=== PATIENT | female | born 1990 | race Caucasian/White ===

== ENCOUNTER 2016-10-27 00:32 | Inpatient (IN) | payer OTHER ==
[~2016-10-27] VITALS: Ht 175.3 cm; Wt 129.3 kg
[~2016-10-27 00:32] MED LIST: Acetaminophen/Codeine PO; Ibuprofen PO; ONDA4TAB9 PO; PNV1TABL9 PO
[2016-10-27 08:20] LABS: Mean Corpuscular Hemoglobin 28.3 pg (27.0-35.0); Mean Corpuscular Volume 85.5 fL (81-100)
[2016-10-27] MEDS ORDERED: Lactated Ringer's 1,000 ML IV PRN (08:41)
[2016-10-27] MEDS ORDERED: Methylergonovine 0.2 mg/mL Inj IM PRN ×2 (08:45→13:55)
[2016-10-27] MEDS ORDERED: Oxytocin 30 Units/500 mL LR 30 UNITS in IV Premix 1 EACH IV PRN ×2 (08:45→13:55)
[2016-10-27] MEDS ORDERED: Ondansetron 2 mg/mL 2 mL Inj IVPUSH PRN (08:45)
[2016-10-27] MEDS ORDERED: Hemorrhage Kit, Post Partum XX ONE ×2 (08:45→13:55)
[2016-10-27] MEDS ORDERED: Sodium Chloride LOK Flush 10 mL Syringe IVFLUSH PRN (08:45)
[2016-10-27] MEDS ORDERED: Carboprost 250 mCg/mL Inj IM PRN ×2 (08:45→13:55)
[2016-10-27] MEDS ORDERED: Oxytocin 10 Unit/mL Inj IM PRN ×2 (08:45→13:55)
[2016-10-27] MEDS ORDERED: fentaNYL-PF 50 mCg/mL 2 mL Inj IVPUSH PRN (12:00)
[2016-10-27] MEDS: Lactated Ringer's 1,000 ML IV SCH ×2 (13:52→21:52)
[2016-10-27] MEDS ORDERED: Measles-Mumps-Rubella Vaccine 0.5 mL Inj SUBQ ONE (13:55)
[2016-10-27] MEDS ORDERED: TdaP Vaccine 0.5 mL Inj IM ONE (13:55)
[2016-10-27] MEDS ORDERED: Benzocaine (Dermoplast) 20% 60 Gm Spray TOPICAL PRN (13:55)
[2016-10-27] MEDS ORDERED: Witch Hazel-Glycerin Pads TOPICAL PRN (13:55)
[2016-10-27] MEDS ORDERED: Influenza (Adult) Vaccine 0.5 mL Syringe IM ONE (13:55)
[2016-10-27] MEDS ORDERED: LANOlin HPA 7 Gm Ointment TOPICAL PRN (13:55)
[2016-10-27] MEDS: HYDROcodone-APAP 5-325 mg Tablet PO PRN ×2 (15:42→21:23)
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
--- NOTE | 2016-10-28 02:15 | OP ---
[address] [address] OPERATIVE REPORT PATIENT: HECTOR LARES : 1990 MR#: [id number] ADMIT: 10/27/2016 JOB ID: [id number] DATE OF SURGERY: 10/27/2016, about 15:00. [facility] NOTE: The patient was admitted this morning on October 27, 2016, for labor induction at her request. Artificial rupture of membranes was accomplished and clear fluid recovered, and uterine contractions initially became stronger. However, Pitocin therapy also was needed to bring contractions closer and more uniformly intense, and later intrauterine pressure catheter was placed which definitely helped management. Ultimately, labor progressed relatively rapidly in the active phase and second stage. heart tracing was acceptable. In the very short second stage of labor patient pushed and head delivered, followed directly by the body and extremities. Baby was vigorous and active and crying, and handed to the mother. Placenta was then expelled, intact. Note that the membranes took almost 30 minutes to pass, yet appeared to be intact, and although difficult, palpation into at least a portion of the uterine cavity did not demonstrate any obvious retained membrane fragment. Blood loss was in the 150 cc range. Betadine solution was used to cleanse the vulvovaginal region. No lacerations were noted. There was periurethral abrasion noted in the anterior to her right region, not bleeding, no stitches needed. Procedure was then complete, with instrument, needle and sponge counts all found to be correct. Note that cord blood had been obtained for routine studies. It certainly is anticipated that mother and baby will do very well during the and timeframe. [facility]
[2016-10-28] MEDS: HYDROcodone-APAP 5-325 mg Tablet PO PRN ×3 (02:44→14:41)
[2016-10-28] MEDS: Lactated Ringer's 1,000 ML IV SCH (05:52)
[2016-10-28 06:25] LABS: Mean Corpuscular Hemoglobin 28.5 pg (27.0-35.0); Mean Corpuscular Volume 86.1 fL (81-100)
--- NOTE | 2016-10-28 12:46 | PCM.DIOB ---
Obstetrical Disch Instruction Dates of Hospitalization Date of Hospital Admission Oct 27, 2016 at 07:00 Providers Admitting Physician: Ernesto Gupta MD Primary Care Physician: Ernesto Gupta MD Attending Physician: Ernesto Gupta MD Discharge Diagnosis Problems: (1) Status: Acute ICD Code: Z33.1 Diet Discharge Diet: No restrictions Activity Discharge Activity-General: Pelvic Rest for 6 weeks Dressing and Incisional Care Hygiene: May shower, Perineal care, Sitz bath, Dermoplast spray, Witch Mariaa pads, Ice Follow Up Plan Follow-up appointment: Weeks (Follow up in 6 weeks for checkup with Dr. Gupta...Call to make appointment.) Call your provider for: Fever or Chills, Shortness of breath, Heavy vaginal bleeding, Red painful breasts Ernesto Gupta MD Oct 28, 2016 12:46
[2016-10-28] MEDS ORDERED: IBUP-1827 PO (12:47)
[2016-10-28] MEDS ORDERED: HYDR-4003 PO (12:47)
[2016-10-28 13:11] VITALS: BP 112/67; PULSE 87; RESP 18
--- NOTE | 2016-10-28 21:26 | DIS ---
[address] [address] DISCHARGE SUMMARY PATIENT: HECTOR LARES : 1990 MR#: [id number] ADMIT: 10/27/2016 JOB ID: [id number] DIS: 10/28/2016 DISCHARGE DIAGNOSIS: Term , delivered. PROCEDURES PERFORMED DURING HOSPITALIZATION: 1. Labor induction. 2. Vaginal delivery. HOSPITAL COURSE: The patient was admitted to [facility] on October 27, 2016, on which day she underwent labor induction ultimately leading to vaginal delivery. During the timeframe, the patient did well with stable vitals, afebrile, with reasonable bleeding and pain management, ambulating and voiding, without leg pain or shortness of breath and handling the baby well. hemoglobin was okay. The patient requested discharge to home on the first day (i.e. on October 28, 2016). DISCHARGE PROGRAM: The patient will call p.r.n. Otherwise, she will follow up at six weeks for checkup with Dr. Gupta. She will observe pelvic rest for six weeks. DISCHARGE MEDICATIONS: Include Ibuprofen 600 mg and [place] 5/325; prescriptions written. She also will use a vitamin daily while nursing; she has supply at home.
== END 2016-10-28 15:30 | disposition home or self-care (01) | DRG 775 ==
LOC: FBC 07:00
PROVIDERS: ADMIT Obstetrics & Gynecology; ATTEND Obstetrics & Gynecology
PROC: 10E0XZZ Delivery of Products of Conception, External Approach (ICD-10-PCS; principal; 2016-10-27)
PROC: 10907ZC Drainage of Amniotic Fluid, Therapeutic from Products of Conception, Via Natural or Artificial Opening (ICD-10-PCS; 2016-10-27)
PROC: 3E033VJ Introduction of Other Hormone into Peripheral Vein, Percutaneous Approach (ICD-10-PCS; 2016-10-27)
DX: O99.214 Obesity complicating childbirth (principal); Z3A.39 39 weeks gestation of pregnancy; Z37.0 Single live birth